=== PATIENT | female | born 1930 | race Caucasian/White ===

== ENCOUNTER 2017-01-15 19:19 | Emergency (ER) | payer BC ==
[~2017-01-15] VITALS: Ht 157.5 cm; Wt 66.2 kg
--- NOTE | ~2017-01-15 | CR72 ---
[facility] A Service of [facility] & [facility] / [facility] RADIOLOGY TEXT RESULTS PATIENT: UZIEL DORANTES LOCATION: [facility] : [birth year] UNIT #: [id number] AGE: [address]: Wale Moura MD SEX: F ORDER DR: [id number] [facility] [address] [place], [place] [address] [id number] E MR#: [id number] #: [id number] NAME: UZIEL DORANTES. : 1930 SEX: F STUDY DATE/TIME: 01/15/2017 23:36 UNIT: [facility] ROOM: STUDY DESCRIPTION: CR Chest Single View Portable Attending Physician: Wale Moura M.D. Ordering Physician: Reji Dubose D.O. Primary Care Physician: Ann Marie Odom M.D. MEDICAL IMAGING REPORT This report is preliminary unless electronic signature is present EXAM Chest x-ray, 01/15/2017 HISTORY 86-year-old female in the ED complaining of 6-month history of back pain, worsening tonight. Some new chest pain tonight. TECHNIQUE AP portable radiographs of the chest. FINDINGS Shallow lung expansion with mild left basilar atelectasis. Heart size and pulmonary vascularity are normal. The lungs are otherwise clear. No visible pleural effusion. Thoracolumbar spinal curvature. IMPRESSION Shallow lung expansion with mild left basilar atelectasis. Dictated by... Alfonso Peterson M.D. THIS IS AN ELECTRONICALLY VERIFIED REPORT Alfonso Peterson M.D. at 01/16/2017 9:57 PM Katie TD: 01/16/2017 10:07 JOB #: [id number] MEDICAL IMAGING REPORT Page 1 of 1 COPY
--- NOTE | ~2017-01-15 | EKG ---
PATIENT: UZIEL DORANTES UNIT #: [id number] Ventricular Rate: 64 BPM Atrial Rate: 64 BPM P-R Interval: 140 ms QRS Duration: 74 ms Q-T Interval: 424 ms QTC Calculation(Bezet): 437 ms P [place]: 8 degrees Calculated R [place]: -22 degrees Calculated T [place]: -10 degrees Diagnosis Line: Sinus rhythm with Premature supraventricular Diagnosis Line: complexes Diagnosis Line: Otherwise normal ECG Diagnosis Line: No previous ECGs available Diagnosis Line: Confirmed by FEDERICO DUVALL MD ([id number]) on 01/16/2017 Diagnosis Line: 7:17:11 PM INTERPRETING MD: JADIEL LAGUERRE
--- NOTE | ~2017-01-15 | CR181 ---
[facility] A Service of [facility] / [facility] RADIOLOGY TEXT RESULTS PATIENT: UZIEL DORANTES LOCATION: [facility] : [birth year] UNIT #: [id number] AGE: [address]: Wale Moura MD SEX: F ORDER DR: [id number] [facility] [address] [place], [place] [address] [id number] E MR#: [id number] #: [id number] NAME: UZIEL DORANTES : 1930 SEX: F STUDY DATE/TIME: 01/15/2017 23:38 UNIT: [facility] ROOM: STUDY DESCRIPTION: CR Lumbar Spine 2 or 3 Views Attending Physician: Wale Moura M.D. Ordering Physician: Wale Moura M.D. Primary Care Physician: Ann Marie Odom M.D. MEDICAL IMAGING REPORT This report is preliminary unless electronic signature is present EXAM Lumbar spine, 01/15/2017. HISTORY 86-year-old female in the ED complaining of 6-month history of back pain, worsening tonight. TECHNIQUE AP and lateral radiographs of the lumbar spine, limited by suboptimal radiographic exposure and patient positioning. FINDINGS Moderately severe chronic vertebral compression fracture deformity is noted at L1. [id number] chronic vertebral compression fracture deformities at T11, T12 and L3. No gross evidence of acute lumbar fracture. Marked demineralization suggests osteoporosis. Lower lumbar degenerative facet arthropathy. Lumbar vertebral alignment is within normal limits. IMPRESSION 1. Moderately severe chronic vertebral compression fracture deformity at L1. 2. Dlsy-vl-[id number] chronic-appearing vertebral compression fracture deformities at T11, T12 and L3. 3. No definite acute lumbar vertebral fracture is identified. Technically limited study as noted above. 4. Demineralization suggesting osteoporosis. 5. The identified chronic-appearing vertebral compression deformities were present on the previous outside study of 08/05/2016. Dictated by... Alfonso Peterson M.D. [facility] A Service [facility] RADIOLOGY TEXT RESULTS PATIENT: UZIEL DORANTES LOCATION: [facility] : [birth year] UNIT #: [id number] AGE: [address]: Wale Moura MD SEX: F ORDER DR: THIS IS AN ELECTRONICALLY VERIFIED REPORT Alfonso Peterson M.D. at 01/16/2017 9:57 PM Maximiliano TD: 01/16/2017 10:05 JOB #: [id number] MEDICAL IMAGING REPORT Page 1 of 1 COPY
[~2017-01-15 19:19] MED LIST: KCL PO; LOPRESSOR PO; LORTAB 5/500 TA1 TA1 PO; LOZOL PO; MAG-OXIDE400 MG PO; METOPROLOL SUCC25 MG PO; PLENDIL PO; PREDNISONE PO; VICODIN 5/500 T1 TAB PO
[2017-01-16 00:22] LABS: BASOPHIL# 0.1 X10e3 (0-0.3); BASOPHIL% 0.7 % (0-2.5); EOSINOPHIL% 0.3 % (0.0-7.0); HEMATOCRIT 42.3 % (35.0-45.0); HEMOGLOBIN 13.9 gm/dL (12.0-16.0); LYMPHOCYTE# 1.9 X10e3 (1.0-3.5); LYMPHOCYTE% 25.5 % (17.0-45.0); MEAN CELL VOLUME 87.2 FL (83-96); MEAN CORPUSCULAR HEMOGLOBIN 28.6 PG (28-34); MEAN CORPUSCULAR HGB CONC 32.8 g/dL (30-36); MEAN PLATELET VOLUME 7.4 FL (6.5-11.5); MONOCYTE# 0.5 X10e3 (0-1.0); MONOCYTE% 6.1 % (3.0-12.0); NEUTROPHIL% 67.4 % (40-75); PLATELET COUNT 229 X10e3 (140-420); RED BLOOD COUNT 4.85 X10e (3.90-5.30); RED CELL DISTRIBUTION WIDTH 14.8 % (11.0-15.5); WHITE BLOOD COUNT 7.4 X10e3 (4.0-10.5)
[2017-01-16 00:23] LABS: DIFF IND NO
[2017-01-16 00:36] LABS: POC - CKMB 2.6 ng/mL (0.0-7.9); POC - TROPONIN <0.05 ng/mL (<=0.05)
[2017-01-16 00:43] LABS: ALBUMIN SERUM 3.9 g/dL (3.5-5.0); BILIRUBIN, DIRECT 0.1 mg/dL (0.0-0.2); BILIRUBIN,INDIRECT 0.9 mg/dL (0.0-0.9); BUN/CREATININE RATIO 18.18; CALCIUM SERUM 9.7 mg/dL (8.4-10.2); CREATININE SERUM 1.1 mg/dL (0.6-1.4); GLOM FILT RATE Estimated 44.8 mL/min (>60); POTASSIUM 3.6 mmol/L (3.5-5.1); PROTEIN TOTAL SERUM 7.5 g/dL (6.0-8.3)
[2017-01-16 00:52] LABS: PARTIAL THROMBOPLASTIN TIME 23.9 SECONDS (23.5-31.3); PROTHROMBIN TIME (PATIENT) 10.9 SECONDS (10.0-11.7)
[2017-01-16 01:57] LABS: URINE SOURCE CLEAN CATCH
[2017-01-16 02:07] LABS: URINE APPEARANCE CLEAR; URINE BILIRUBIN NEG (NEG); URINE BLOOD NEG (NEG); URINE COLOR YELLOW; URINE GLUCOSE NEG (NEG); URINE KETONE NEG (NEG); URINE LEUKOCYTE ESTERASE TRACE (NEG); URINE NITRATE NEG (NEG); URINE PROTEIN NEG (NEG); URINE SPECIFIC GRAVITY 1.012 (1.003-1.035); URINE UROBILINOGEN 0.2 MG/DL (NEG)
[2017-01-16 02:10] LABS: URBCS1 AUWI 0-2 /[HPF] (0-2); URINE BACTERIA AUWI NEG (NEGATIVE); URINE SQUAMOUS EPITHELIAL CELL NONE SEEN /[HPF]
[2017-01-16 02:11] LABS: CULTURE INDICATED? NO
[2017-01-16 02:19] LABS: POC - CKMB 1.8 ng/mL (0.0-7.9); POC - TROPONIN <0.05 ng/mL (<=0.05)
== END 2017-01-16 02:45 | disposition home or self-care (01) ==
LOC: CED 19:19
PROVIDERS: Emergency Medicine
DX: M54.9 Dorsalgia, unspecified (principal); I10 Essential (primary) hypertension; Z90.710 Acquired absence of both cervix and uterus; Z88.0 Allergy status to penicillin; Z88.2 Allergy status to sulfonamides
CPT/HCPCS: 36415; 71010; 72100; 80048; 80076; 81003; 82553; 84484; 85025; 85610; 85730; 93005; 96374; 99284; J1885